=== PATIENT | female | born 2000 | race Hispanic/Latino ===

== ENCOUNTER 2019-08-18 17:11 | Emergency (ER) | payer SELFPAY ==
[2019-08-18] MEDS ORDERED: diphenhydrAMINE 50 MG/ML VIAL ONE (17:31)
[2019-08-18] MEDS ORDERED: Metoclopramide HCl 10 MG/2 ML VIAL ONE (17:31)
[2019-08-18] MEDS ORDERED: Acetaminophen 500 MG TAB ONE (17:31)
[2019-08-18 18:05] LABS: BHCG - Serum POSITIVE (NEGATIVE); Pregs Control Background? CLEAR/WHITE (CLR/WHITE); Pregs Control Bar Appear? YES (CONTROL BAR)
== END 2019-08-18 19:50 | disposition home or self-care (01) ==
LOC: ERS 17:11
DX: R51 Headache (principal); F41.9 Anxiety disorder, unspecified
CPT/HCPCS: 84703; 96361; 96365; 96375; J1200; J2765